=== PATIENT | female | born 1990 | race Two or more races ===

== ENCOUNTER 2019-02-02 08:00 | Emergency (ER) | payer OTHER ==
[~2019-02-02] VITALS: Ht 165.1 cm; Wt 73.5 kg
[2019-02-02 08:03] VITALS: Ht 165.1 cm; Wt 73.5 kg
[2019-02-02 08:32] LABS: BASOPHIL % 0.9 % (0-2); PLATELET COUNT 235 x10^3mcL (130-400)
[2019-02-02 08:38] LABS: RED CELL DISTRIBUTION WIDTH 15.6 % (11.5-14.5)
[2019-02-02 08:44] LABS: CALCIUM 8.2 mg/dL (8.5-10.1); CHLORIDE SERUM 108 mmol/L (98-107); CREATININE SERUM 0.7 mg/dL (0.6-1.0); GFR1 > 60 mL/min; GLUCOSE SERUM 93 mg/dL (74-106); POTASSIUM SERUM 4.5 mmol/L (3.5-5.1); SODIUM SERUM 144 mmol/L (136-145)
[2019-02-02 08:49] LABS: ALBUMIN 3.5 g/dL (3.4-5.0); ALKALINE PHOSPHATASE 84 U/L (46-116); ALT/SGPT 25 U/L (14-59); AST/SGOT 20 U/L (15-37); BILIRUBIN TOTAL 0.4 mg/dL (0.20-1.00); TOTAL PROTEIN, SERUM 6.5 g/dL (6.4-8.2)
[2019-02-02 10:00] VITALS: BP 110/68
== END 2019-02-02 10:00 | disposition home or self-care (01) ==
LOC: ED 08:00
PROVIDERS: Emergency Medicine
DX: N83.201 Unspecified ovarian cyst, right side (principal)
CPT/HCPCS: 36415; 87491; 87591; J1885

== ENCOUNTER 2019-09-13 22:45 | Emergency (ER) | payer OTHER ==
[~2019-09-13] VITALS: Ht 165.1 cm; Wt 90.7 kg
[2019-09-13 23:07] VITALS: Ht 165.1 cm; Wt 90.7 kg
[2019-09-14 01:25] LABS: microscopic required? YES; urine erythrocyte NEGATIVE (NEGATIVE)
[2019-09-14 01:55] VITALS: BP 103/74
== END 2019-09-14 01:55 | disposition home or self-care (01) ==
LOC: ED 22:45
PROVIDERS: Emergency Medicine
DX: O23.43 Unspecified infection of urinary tract in pregnancy, third trimester (principal); O21.9 Vomiting of pregnancy, unspecified; R82.71 Bacteriuria; R51 Headache; Z3A.32 32 weeks gestation of pregnancy
CPT/HCPCS: J1200; J2765; J7030